=== PATIENT | female | born 1955 | race Hispanic/Latino ===

== ENCOUNTER 2018-07-05 12:30 | Outpatient (CLI) | payer OTHER | END 2018-07-05 13:30 | disposition home or self-care (01) | LOC: PAT 12:30 ==

== ENCOUNTER 2018-07-12 07:37 | Day surgery (SDC) | payer OTHER ==
[2018-07-12] MEDS ORDERED: Bupivacaine 0.5% 50 ML IJ ONE (09:21)
[2018-07-12] MEDS ORDERED: Lidocaine 1% w Epi 1:100,000 Inj ONE (09:22)
[2018-07-12 09:25] VITALS: BMI 33.2
[2018-07-12] MEDS ORDERED: Propofol 10 mg/ml Inj (20 ML) ONE (09:31)
[2018-07-12] MEDS ORDERED: Midazolam 2 MG/2 ML VIAL ONE (09:32)
[2018-07-12] MEDS ORDERED: Lidocaine PF 2% (5 ml) Inj (For Cardiac Arrhy) ONE (09:32)
[2018-07-12] MEDS ORDERED: HYDROmorphone 0.5 mg/0.5 ml ISec IVP PRN (11:02)
[2018-07-12] MEDS ORDERED: Oxycodone/Acetaminophen 5/325 mg Tab PO PRN (11:03)
--- NOTE | 2018-07-12 11:06 | PCM.SURG1 ---
Surgeon's Initial Post Op Note - Surgeon's Notes Surgeon: Renae Vega MD Senior Water Resources Engineer: Vielka Escobar PA-C Type of Anesthesia: General LMA Anesthesia Administered By: Dr. Lujan Pre-Operative Diagnosis: Right knee medial/lateral meniscal tear Operative Findings: tourniquet not used Post-Operative Diagnosis: same Operation Performed: Right knee arthroscopy. partial medial and lateral meniscectomies. chondroplasty medial femoral condyle Specimen/Specimens Removed: none Estimated Blood Loss: EBL {In ML}: 2 Blood Products Given: N/A Drains Used: No Drains Post-Op Condition: Fair Date of Surgery/Procedure: 07/12/18 Time of Surgery/Procedure: 11:12
[2018-07-12] MEDS ORDERED: HYDROmorphone 0.5 mg/0.5 ml ISec ONE ×2 (11:13→11:30)
[2018-07-12] MEDS ORDERED: Lactated Ringer's 1,000 ML IV SCH (11:15)
[2018-07-12] MEDS ORDERED: HYDROmorphone 0.5 mg/0.5 ml ISec IVP ONE (11:29)
[2018-07-12 11:32] VITALS: RESP 18
[2018-07-12 12:06] VITALS: PULSE 60; TEMP 97.6; O2SAT 96
[2018-07-12 13:23] VITALS: BP 128/70
--- NOTE | 2018-07-12 22:36 | OP ---
PROCEDURE DATE: 07/12/2018 PREOPERATIVE DIAGNOSES: Right knee medial and lateral meniscal tears and degenerative joint disease. POSTOPERATIVE DIAGNOSES: Right knee medial and lateral meniscal tears with tricompartmental degenerative joint disease as well as plica. PROCEDURE: Right knee arthroscopy with medial and lateral meniscectomies and excision of plica. SURGEON: Hamilton Vega MD. DRAPERY MAKER: Dr. Vega was assisted by April Escobar, the physician assisted living assistant. Ms. Escobar was scrubbed and present throughout the entire case, assisted in patient positioning, manipulation of the extremity, and wound closure. ANESTHESIA: General. COMPLICATIONS: None. ESTIMATED BLOOD LOSS: 5 mL. INDICATIONS FOR PROCEDURE: This is a 62-year-old female with longstanding right knee pain. Clinical examination is consistent with medial and lateral joint line tenderness, pain at the extremes of knee flexion. Radiographic and MRI examination is consistent with degenerative joint disease as well as degenerative tears of both the medial and lateral menisci. After a period of failed nonsurgical management including activity modification, pain medication as well as steroid injections, recommendations are for right knee arthroscopy. The risks, benefits and alternatives of the procedure were discussed with the patient and informed consent was obtained. DESCRIPTION OF THE PROCEDURE: After the surgical site was signed and verified in the preoperative holding area, the patient was taken to the operating room and placed supine on the operating room table. After administration of general anesthesia, the patient received 2 g of Ancef IV. A tourniquet was placed about the right thigh. Care was taken to make sure all bony prominences and nerves were well padded and protected and the right lower extremity was prepped and draped in usual sterile fashion. Bony landmarks were identified about the right knee and portal sites were injected with a total of 10 mL of 1% lidocaine with epinephrine. An anterior lateral arthroscopy portal was established and arthroscope was inserted into the knee joint. Patellofemoral articulation was evaluated. 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 The suprapatellar recess and medial and lateral gutters were noted to be free of any loose bodies; however, medial plica was visualized and through an anteromedial portal, this was excised using a full-radius shaver. Next, the medial compartment was evaluated. The medial meniscus was probed and the patient was noted to have complex degenerative tear at the posterior horn of the medial meniscus. Using a combination of basket forceps and a full-radius shaver, a meniscectomy was performed, resected the posterior horn back to a small but stable rim. The chondral surface of the medial femoral condyle was noted to have some grade 3 chondromalacia. Some small loose flaps of cartilage were noted around the periphery of the lesion and this was debrided using a full-radius shaver. Please note that this area was on the weightbearing surface of the medial femoral condyle. The chondral surface of the medial tibial plateau was noted to have some grade 1 and grade 2 changes. Next, the intercondylar notch was evaluated. ACL was well visualized. The patient was noted to have some partial tearing at the femoral insertion of the ACL. Some intrasubstance tearing was also noted. Anterior drill was performed, and the patient was noted to have some grade 1 to 2 laxity with an anterior drawer. The PCL was also visualized and appeared to be intact. Next, lateral compartment was evaluated. The entire both posterior and anterior horn of the lateral meniscus was noted to have degenerative-type complex tearing and a meniscectomy was performed using a full-radius shaver and basket forceps. The patient was noted to have grade 4 chondromalacia of both the weightbearing portion of the lateral tibial plateau as well as the lateral femoral condyle. Please note, the popliteus tendon was also visualized and appeared to be intact. At this point, the knee joint was irrigated through the arthroscopic cannula and all the instruments were removed. All portal sites were closed using interrupted 3-0 Vicryl and Dermabond for the skin. A sterile dressing was applied. The patient was awakened from the procedure and taken to the recovery room in stable condition. Hamilton Vega MD
== END 2018-07-12 13:30 | disposition home or self-care (01) ==
LOC: SDS 07:37
PROVIDERS: ATTEND Orthopaedic Surgery
DX: M23.321 Other meniscus derangements, posterior horn of medial meniscus, right knee (principal); M23.251 Derangement of posterior horn of lateral meniscus due to old tear or injury, right knee; M23.241 Derangement of anterior horn of lateral meniscus due to old tear or injury, right knee; M17.11 Unilateral primary osteoarthritis, right knee; M22.41 Chondromalacia patellae, right knee; M67.51 Plica syndrome, right knee; I10 Essential (primary) hypertension; F17.200 Nicotine dependence, unspecified, uncomplicated
CPT/HCPCS: 29880; 97116; J0690; J1170; J2250; J2405; J2704; J3010; J7120 ×2